=== PATIENT | female | born 1970 | race Caucasian/White ===

== ENCOUNTER 2021-03-25 15:14 | Outpatient (CLI) | payer SELFPAY ==
--- NOTE | ~2021-03-25 | US_ITS ---
EXAMINATION: US pelvic complete w TV EXAM DATE: 03/25/2021 15:46 INDICATION: Abnormal vaginal bleeding. TECHNIQUE: Pelvic transabdominal and transvaginal sonogram was performed. There are multiple graysca le and Doppler images available for interpretation. There is no prior study for comparison. FINDINGS: Uterus measures 7.5 x 4.0 x 5.8 cm, and is morphologically normal. Endometrial stripe mike sures 5 mm, within normal limits. There is no free pelvic fluid. Right adnexa: The ovary measures 2.4 x 2.1 x 2.9 cm and is morphologically normal, probably has the d ominant 1.3 cm follicle. Ovarian vascular flow confirmed. Left adnexa: The ovary measures 2.8 x 1.6 x 2.6 cm and is morphologically normal. Ovarian vascular fl ow confirmed. IMPRESSION: Small right adnexal cyst, probably physiologic. Reviewed, dictated and finalized at location A. STICS ENGINEER
== END 2021-03-25 15:15 ==
PROVIDERS: Visit Provider Nurse Practitioner
DX: N93.8 Other specified abnormal uterine and vaginal bleeding (principal)
CPT/HCPCS: 76830; 76856

== ENCOUNTER 2024-08-25 03:34 | Day surgery (SDC) | payer OTHER, SELFPAY ==
[2024-08-15 13:41] VITALS: BMI 29.1
--- OUTSIDE RECORDS SUMMARY | 2024-08-25 03:37 | XMS_ITS | Clinical Summary ---
Author Organization [facility] Address [address] [place] [address] Phone Care Team Providers Care Clerical Warehouseman Name Role Phone Caesar Domínguez MD Primary Care Provider [phone] Allergies Active Allergy Reactions Criticality Noted Date Comments Amoxicillin Unknown 10/06/2008 Medications aspirin (JAMES) 81 mg Oral TabIndications:Ab normal mammogram, unspecified Take 81 mg by mouth daily. Active Active Problems Patient Care Coordination No te Formatting of this note migh t be different from the original. obgyn Dr. Haley Poole Problem Noted Date Diagnosed Date Patient denies relevant medical history Alopecia Family History Medical History Relation Name Comments Heart Disease Maternal Grandfather Heart Disease Maternal Grandmother Relation Name Status Comments Maternal Grandfather Maternal Grandmother Social History Tobacco Use Types Packs/Day Years Used Date Smoking Tobacco: Never Alcohol Use Standard Drinks/Week Comments No 0 (1 standard drink = 0.6 oz pur e alcohol) Comments No Sex and Gender Information Value Date Recorded Sex Assigned at Not on file Legal Sex Female 5:45 AM TOE P[employer]ER Gender Identity Not on file Sexual Orientation Not on file Last Filed Vital Signs Vital Sign Reading Time Taken Comments Blood Pressure 122/80 10/06/2008 1:19 PM CDT Pulse - - Temperature - - Respiratory Rate - - Oxygen Saturation - - Inhaled Oxygen Concentration - - Weight 68.9 kg (152 lb) 10/06/2008 1:19 PM CDT Height 162.6 cm (5' 4) 10/06/2008 1:19 PM CDT Body Mass Index 26.09 10/06/2008 1:19 PM CDT Plan of Treatment Health Maintenance Due Date Last Done Comments DTAP/TDAP/TD VACCINES (1 - Tdap) 1990 HEPATITIS B VACCINES (1 of 3 - 19+ 3-dose series) 1990 HPV/Cotest (21-29) 02/11/1992 CERVICAL CANCER SCREENING 2001 HPV/Cotest (30-65) 2001 PAP SMEAR 2001 BREAST CANCER SCREENING 2011 04/11/19 10, 09/11/2008, 04/22/2006 COLORECTAL SCREENING 02/11/2016 Colorectal Cancer Screening 02/11/2016 FIT-DNA Q 3 years 02/11/2016 FIT/FOBT Q 1 year 02/11/2016 Flex Sig/CT Colonography Q 5 years 02/11/2016 ZOSTER VACCINE (1 of 2) 2021 INFLUENZA VACCINE (#1) 2023 Procedures Procedure Name Priority Date/Time Associated Diagnosis Comments MAMMO DIAGNOSTIC UNI LEFT W OR WO CAD Routine 04/11/2009 Abnormal Mammogram, Unspecified from Last 3 Months or Most Recently Relevant to Health Maintenance Results * MAMMO DIGITAL DIAG UNI LEFT (04/11/2009) Anatomical Region Laterality Modality Breast Left Other Rachel See MD MAMMO ORDERABLES Final Result from Last 3 Months or Most Recently Relevant to Health Maintenance Insurance Care Teams Clerical Warehouseman Relationship Specialty Start Date End Date Caesar Domínguez MD [address] [place] [address] [place] [address] PCP - General 10/06/08
[2024-08-25 09:23] VITALS: BP 150/95; PULSE 83; RESP 16; TEMP 36.4; O2SAT 100
[2024-08-25] MEDS: LACTATED RINGERS 1,000 ML 150 ML IV CONT (09:32)
--- NOTE | 2024-08-25 10:36 | WPDANESEPPF ---
Anes - Initial Pre Proc Eval Procedure: Operation Date: 08/25/24 10:45 Proposed Procedures p Screening Colonoscopy - Baron Byrne MD Date/Time: 08/25/24 10:36 Surgeon: Baron Byrne MD Pre Op Diagnosis: Encounter for screening for malignant neoplasm of Patient Data Age: 54 Gender: F Height: 1.63 m Weight: 75.7 kg Last Vital Signs Temp 97.6 F 08/25/24 09:23 Pulse 83 08/25/24 09:23 Resp 16 08/25/24 09:23 BP 150/95 H 08/25/24 09:23 Pulse Ox 100 08/25/24 09:23 O2 Del Method Room Air 08/25/24 09:23 Allergies Allergy/AdvReac Type Severity Reaction Status Date / Time erythromycin base Allergy Unknown Nausea and Verified 08/25/24 09:21 Vomiting Penicillins Allergy Unknown Rash Verified 08/25/24 09:21 Home Medications ?Medication ?Instructions ?Recorded ?Confirmed ?Type calcium phosphate,dibasic 77 2 tablet PO DAILY 08/15/24 08/25/24 History mg-vitamin D3 400 unit tablet olmesartan 40 mg tablet 40 mg PO DAILY 08/15/24 08/25/24 History progesterone micronized 100 mg 100 mg PO QPM 08/15/24 08/25/24 History capsule Patient hx anesthesia problems: none Family hx anesthesia problems: none Results Review: All pre-operative results and documents have been reviewed as part of the pre-operative evaluation. [facility] Social History Social History Smoking status: Never smoker Alcohol intake: never Substance use: never Substance use type: does not use Living arrangements: with family Spiritual care concerns: No Anes - Eval Final PreProcedure Day of Procedure 08/25/24 10:36 Patient weight: normal Heart: regular rate and rhythm Lungs: clear to auscultation Airway: Mallampati scale class II Neurological: alert and oriented Last oral intake: >/= 8 hours ASA classification: II Emergent: no Anesthetic plan: proceed Anesthesia type and monitoring: general GIVS and standard monitoring Results Review: All pre-operative results and documents have been reviewed as part of the pre-operative evaluation. Informed Consent: The patient's anesthetic plan and its attendant risks and benefits were discussed with the patient/family/POA. Questions were solicited and answers provided to the satisfaction of the patient/family/POA.
--- NOTE | 2024-08-25 10:37 | P.HP_ITS ---
H&P: HPI History of Present Illness Date/Time: 08/25/24 10:37 Chief Complaint: Screening colonoscopy Narrative: This is the patient's 2nd colonoscopy. There are no GI symptoms and there is no family history of colorectal cancer. Review of Systems Review of Systems: All systems reviewed & are unremarkable except as noted in HPI and below [facility] Social History Social History Smoking status: Never smoker Alcohol intake: never Substance use: never Substance use type: does not use Living arrangements: with family Spiritual care concerns: No Meds Home Medications and Allergies Home Medications ?Medication ?Instructions ?Recorded ?Confirmed ?Type calcium phosphate,dibasic 77 2 tablet PO DAILY 08/15/24 08/25/24 History mg-vitamin D3 400 unit tablet olmesartan 40 mg tablet 40 mg PO DAILY 08/15/24 08/25/24 History progesterone micronized 100 mg 100 mg PO QPM 08/15/24 08/25/24 History capsule Allergies Allergy/AdvReac Type Severity Reaction Status Date / Time erythromycin base Allergy Unknown Nausea and Verified 08/25/24 09:21 Vomiting Penicillins Allergy Unknown Rash Verified 08/25/24 09:21 Vital Signs Vital Signs - 24 hr 08/25/24 09:23 Temperature 97.6 F Pulse Rate 83 Respiratory Rate 16 Blood Pressure 150/95 H Pulse Oximetry 100 Oxygen Delivery Room Air Exam Const: General: cooperative and healthy appearing Resp: Effort & Inspection: normal respiratory effort and able to speak in complete sentences Auscultation: clear to auscultation bilaterally Cardio: Rate: regular rate Rhythm: regular rhythm GI: Inspection: normal to inspection GI Palp: No No hepatosplenomegaly present Auscultation: normal bowel sounds Rectal Exam: deferred Skin: General skin exam: normal color Psych: Appearance: grossly normal Mental Status: mental status grossly normal Assessment and Plan Assessment and plan (1) Encounter for screening colonoscopy: Code(s): Z12.11 - Encounter for screening for malignant neoplasm of colon Status: Acute Assessment and Plan: The patient is deemed a good candidate for the procedure. Consent signed. Will proceed.
[2024-08-25 10:59] VITALS: BP 141/89; PULSE 76; RESP 20; O2SAT 100
[2024-08-25 11:09] VITALS: BP 155/91; PULSE 69; RESP 15; O2SAT 100
[2024-08-25 11:19] VITALS: BP 160/100; PULSE 72; RESP 13; O2SAT 100
== END 2024-08-25 11:36 | disposition home or self-care (01) ==
PROVIDERS: PCP Registered Nurse; Referring Provider Nurse Practitioner Women's Health; Visit Provider Internal Medicine Gastroenterology
PROC: 0DJD8ZZ Inspection of Lower Intestinal Tract, Via Natural or Artificial Opening Endoscopic (ICD-10-PCS; CPT 45378; principal; 2024-08-25 10:45)
DX: Z12.11 Encounter for screening for malignant neoplasm of colon (principal); K64.8 Other hemorrhoids
CPT/HCPCS: 45378; J2003; J2704; J7120